=== PATIENT | female | born 1990 | race Caucasian/White ===

== ENCOUNTER 2016-12-31 18:01 | Emergency (ER) | payer SELFPAY ==
--- NOTE | 2016-12-31 20:10 | ED ORDER SUMMARY ---
..... Patient: KRISTIE ORANTES OrderSheet [facility] VisitID: [id number] [address] [place] [address] 26y, F Registration Date/Time: 12/31/2016 ORDER SHEET Weight: 181.4 kg (stated) Allergies: No Known Drug Allergy GENERAL ORDERS: Chest 2V Urgent (18:47 12/31/2016 JCoates) (Ack 19:08 Ehsanegekimana) (19:11 MCampbell) CBC w Diff Urgent (18:47 12/31/2016 JCoates) (Ack 19:08 Ehsanegekimana) (19:46 JBullard R.N.) CMP Urgent (18:47 12/31/2016 JCoates) (Ack 19:08 Ehsanegekimana) (19:46 JBullard R.N.) MEDICATION ORDERS: IV FLUIDS: IV NS : initial bolus 1000 mL (1000 mL/hr), then 1000 mL/hr for X1 (NOW) (18:47 12/31/2016 JCoates) (20:33 JBullard R.N.) Dilaudid IV 1 mg (NOW) (18:47 12/31/2016 JCoates) (20:33 JBullard R.N.) Toradol IV 30 mg (NOW) (18:47 12/31/2016 JCoates) (20:33 JBullard R.N.) Zofran IV 8 mg (NOW) (18:47 12/31/2016 JCoates) (20:34 JBullard R.N.) IV Saline Lock (18:47 12/31/2016 JCoates) (Ack 19:22 Gabe R.N.) (20:33 JBullard R.N.) ORDER SHEET NOTES: [Electronically signed by Benito Patel R.N. (21:08 12/31/2016)] [Electronically signed by Tre Fink (00:19 01/01/2017)] [Electronically locked/signed by Benito Patel R.N. (21:08 12/31/2016)]
--- NOTE | 2016-12-31 20:10 | ED NURSING NOTES ---
Clinical Report - Nurses [facility] [address] [place] [address] 12/31/2016 18:02 Patient: KRISTIE ORANTES TRIAGE Triage time 18:28. Acuity: LEVEL 4. Chief Complaint: HEADACHE and COUGH. Alert. No acute distress. GRACIELA COMA SCORE: Graciela Coma Scale: 15- eyes open spontaneously (4); best verbal response- oriented x 4 (5); best motor response- obeys commands (6). --18:34 Deisi Walker R.N. 18:28 12/31/16. BP: 134/86. HR: 102. RR: 18. O2 saturation: 95% on room air. Temp: 99.6 F (oral). Pain level now: 08/23. --18:34 Deisi Walker R.N. Weight: 181.4 kg stated. Height/Length: 68 inches Per Patient. BMI: 60.8. --18:29 Deisi Walker R.N. Medications None. --18:29 Deisi Walker R.N. Medication/allergy information source: the patient. --18:34 Deisi Walker R.N. Allergies No Known Drug Allergy. --18:29 Deisi Walker R.N. History Arrived by private vehicle. Historian: patient. Unaccompanied. Primary physician (JULISSA Kelley). Onset. (about 1 week). 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 (Contact Ultra,). PAST MEDICAL HX: Last normal menstrual period now. SOCIAL HX: Smoker- current status unknown (no). History of drug use: marijuana. No alcohol use. FALL RISK ASSESSMENT: Fall risk assessment completed. No fall risk identified. FUNCTIONAL ASSESSMENT: Functional assessment: no impairments noted. LEARNING NEEDS ASSESSMENT: The learning needs assessment revealed no barriers. --18:34 Deisi Walker R.N. PROBLEMS: Pyelonephritis. UTI - Urinary Tract Infection. Threatened . Hypertension. Scabies. Chest Pain. Cardiovascular Risk Factors. Immunizations. LNMP - Last Normal Menstrual Period. Reflux . --18:29 Deisi Walker R.N. ADDITIONAL SURGERIES: no known surgeries. Assessment GENERAL / NEURO / PSYCH: The patient is awake and alert, is oriented and cooperative and appears uncomfortable. She has good eye contact. RESPIRATORY: Respirations not labored. Cough. SKIN: Skin is warm and dry. --18:34 Deisi Walker R.N. Interventions ID band on patient. To treatment room. --18:34 Deisi Walker R.N. PHYSICAL ASSESSMENT 18:36 12/31/16. Ambulatory to room. Patient gowned. GENERAL / NEURO / PSYCH: The patient is awake and alert, is oriented and cooperative and appears uncomfortable. She has good eye contact. RESPIRATORY: Respirations not labored. Cough. SKIN: Skin is warm and dry. --18:36 Deisi Walker R.N. NURSING PROGRESS NOTES Pulse oximeter and NIBP monitor placed on patient. Patient gowned. Head of bed elevated. Side rails up x 1. Bed placed in lowest position. Brakes of bed on. --19:41 Deisi Walker R.N. 19:45 12/31/2016 Site #1 started via IV in the right forearm with an 22g angiocath, with aseptic technique and good blood return; two attempts. Blood drawn. Labeled in the presence of the patient and sent to the lab. Saline lock flushed with 10 mL saline (roselyn red, green, lavender tubes). --19:45 Deisi Walker R.N. 20:31 12/31/2016 Site #1 removed. Catheter intact. Bandage applied. --20:32 Benito Patel R.N. 20:32 12/31/2016 Site #1 relocated to the left antecubital space with an 20g angiocath, with aseptic technique and good blood return; one attempt. Saline lock flushed with saline. --20:32 Benito Patel R.N. 20:33 12/31/2016 Started bag #1 1000 mL IV Fluids IV NS (Saline); bolus of 1000 mL wide open via site #1. Allergies verified and confirmed 5 rights. IV patency established. IV site checked: no pain, redness, or swelling. IV flushed thoroughly pre- and post-medication administration. --20:33 Benito Patel R.N. 20:33 12/31/2016 Dilaudid (HYDROmorphone HCl PF) IVP 1 mg given over 2 hour(s) via site #1. Allergies verified, confirmed 5 rights and sedative warning given to the patient. IV patency established. IV site checked: no pain, redness, or swelling. IV flushed thoroughly pre- and post-medication administration. --20:33 Benito Patel R.N. 20:33 12/31/2016 Toradol IVP 30 mg given over 2 minute(s) via site #1. Allergies verified and confirmed 5 rights. IV patency established. IV site checked: no pain, redness, or swelling. IV flushed thoroughly pre- and post-medication administration. --20:33 Beinto Patel R.N. 20:34 12/31/2016 Zofran (Ondansetron HCl) IVP 8 mg given. via site #1. Allergies verified and confirmed 5 rights. IV patency established. IV site checked: no pain, redness, or swelling. IV flushed thoroughly pre- and post-medication administration. --20:34 Benito Patel R.N. DISPOSITION / DISCHARGE Departure time: 2104. Condition at departure: improved. No learning barriers present. Reviewed warnings. Reviewed medication(s). Treatments reviewed. Reviewed referrals. Activity restrictions reviewed. Work note given. Patient verbalized understanding. Written instructions provided in Divehi. The patient was discharged by the physician media center assistant. She was discharged home and unaccompanied at time of discharge. She left the Emergency Department ambulatory and via private vehicle. Patient driving. --21:08 Benito Patel R.N. 21:07 12/31/16. BP: 133/88. HR: 88. RR: 18. O2 saturation: 98%. Temp: 98 F. Pain level now 01/21. --21:08 Benito Patel R.N. Locked/Released at 12/31/2016 21:08 by Benito Patle R.N.
--- NOTE | 2016-12-31 20:10 | ED ORDER SUMMARY ---
..... Patient: KRISTIE ORANTES OrderSheet [facility] VisitID: [id number] [address] [place] [address] 26y, F Registration Date/Time: 12/31/2016 ORDER SHEET Weight: 181.4 kg (stated) Allergies: No Known Drug Allergy GENERAL ORDERS: Chest 2V Urgent (18:47 12/31/2016 JCoates) (Ack 19:08 Ehsanegekimana) (19:11 MCampbell) CBC w Diff Urgent (18:47 12/31/2016 JCoates) (Ack 19:08 Ehsanegekimana) (19:46 JBullard R.N.) CMP Urgent (18:47 12/31/2016 JCoates) (Ack 19:08 Ehsanegekimana) (19:46 JBullard R.N.) MEDICATION ORDERS: IV FLUIDS: IV NS : initial bolus 1000 mL (1000 mL/hr), then 1000 mL/hr for X1 (NOW) (18:47 12/31/2016 JCoates) (20:33 JBullard R.N.) Dilaudid IV 1 mg (NOW) (18:47 12/31/2016 JCoates) (20:33 JBullard R.N.) Toradol IV 30 mg (NOW) (18:47 12/31/2016 JCoates) (20:33 JBullard R.N.) Zofran IV 8 mg (NOW) (18:47 12/31/2016 JCoates) (20:34 JBullard R.N.) IV Saline Lock (18:47 12/31/2016 JCoates) (Ack 19:22 Gabe R.N.) (20:33 JBullard R.N.) ORDER SHEET NOTES: [Electronically signed by Benito Patel R.N. (21:08 12/31/2016)] [Electronically signed by Tre Fink (00:19 01/01/2017)] [Electronically locked/signed by Benito Patel R.N. (21:08 12/31/2016)]
--- NOTE | 2016-12-31 20:10 | ED NURSING NOTES ---
Clinical Report - Nurses [facility] [address] [place] [address] 12/31/2016 18:02 Patient: KRISTIE ORANTES TRIAGE Triage time 18:28. Acuity: LEVEL 4. Chief Complaint: HEADACHE and COUGH. Alert. No acute distress. GRACIELA COMA SCORE: Graciela Coma Scale: 15- eyes open spontaneously (4); best verbal response- oriented x 4 (5); best motor response- obeys commands (6). --18:34 Deisi Walker R.N. 18:28 12/31/16. BP: 134/86. HR: 102. RR: 18. O2 saturation: 95% on room air. Temp: 99.6 F (oral). Pain level now: 08/23. --18:34 Deisi Walker R.N. Weight: 181.4 kg stated. Height/Length: 68 inches Per Patient. BMI: 60.8. --18:29 Deisi Walker R.N. Medications None. --18:29 Deisi Walker R.N. Medication/allergy information source: the patient. --18:34 Deisi Walker R.N. Allergies No Known Drug Allergy. --18:29 Deisi Walker R.N. History Arrived by private vehicle. Historian: patient. Unaccompanied. Primary physician (JULISSA Kelley). Onset. (about 1 week). 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 (Contact Ultra,). PAST MEDICAL HX: Last normal menstrual period now. SOCIAL HX: Smoker- current status unknown (no). History of drug use: marijuana. No alcohol use. FALL RISK ASSESSMENT: Fall risk assessment completed. No fall risk identified. FUNCTIONAL ASSESSMENT: Functional assessment: no impairments noted. LEARNING NEEDS ASSESSMENT: The learning needs assessment revealed no barriers. --18:34 Deisi Walker R.N. PROBLEMS: Pyelonephritis. UTI - Urinary Tract Infection. Threatened . Hypertension. Scabies. Chest Pain. Cardiovascular Risk Factors. Immunizations. LNMP - Last Normal Menstrual Period. Reflux . --18:29 Deisi Walker R.N. ADDITIONAL SURGERIES: no known surgeries. Assessment GENERAL / NEURO / PSYCH: The patient is awake and alert, is oriented and cooperative and appears uncomfortable. She has good eye contact. RESPIRATORY: Respirations not labored. Cough. SKIN: Skin is warm and dry. --18:34 Deisi Walker R.N. Interventions ID band on patient. To treatment room. --18:34 Deisi Walker R.N. PHYSICAL ASSESSMENT 18:36 12/31/16. Ambulatory to room. Patient gowned. GENERAL / NEURO / PSYCH: The patient is awake and alert, is oriented and cooperative and appears uncomfortable. She has good eye contact. RESPIRATORY: Respirations not labored. Cough. SKIN: Skin is warm and dry. --18:36 Deisi Walker R.N. NURSING PROGRESS NOTES Pulse oximeter and NIBP monitor placed on patient. Patient gowned. Head of bed elevated. Side rails up x 1. Bed placed in lowest position. Brakes of bed on. --19:41 Deisi Walker R.N. 19:45 12/31/2016 Site #1 started via IV in the right forearm with an 22g angiocath, with aseptic technique and good blood return; two attempts. Blood drawn. Labeled in the presence of the patient and sent to the lab. Saline lock flushed with 10 mL saline (roselyn red, green, lavender tubes). --19:45 Deisi Walker R.N. 20:31 12/31/2016 Site #1 removed. Catheter intact. Bandage applied. --20:32 Benito Patel R.N. 20:32 12/31/2016 Site #1 relocated to the left antecubital space with an 20g angiocath, with aseptic technique and good blood return; one attempt. Saline lock flushed with saline. --20:32 Benito Patel R.N. 20:33 12/31/2016 Started bag #1 1000 mL IV Fluids IV NS (Saline); bolus of 1000 mL wide open via site #1. Allergies verified and confirmed 5 rights. IV patency established. IV site checked: no pain, redness, or swelling. IV flushed thoroughly pre- and post-medication administration. --20:33 Benito Patel R.N. 20:33 12/31/2016 Dilaudid (HYDROmorphone HCl PF) IVP 1 mg given over 2 hour(s) via site #1. Allergies verified, confirmed 5 rights and sedative warning given to the patient. IV patency established. IV site checked: no pain, redness, or swelling. IV flushed thoroughly pre- and post-medication administration. --20:33 Benito Patel R.N. 20:33 12/31/2016 Toradol IVP 30 mg given over 2 minute(s) via site #1. Allergies verified and confirmed 5 rights. IV patency established. IV site checked: no pain, redness, or swelling. IV flushed thoroughly pre- and post-medication administration. --20:33 Benito Patel R.N. 20:34 12/31/2016 Zofran (Ondansetron HCl) IVP 8 mg given. via site #1. Allergies verified and confirmed 5 rights. IV patency established. IV site checked: no pain, redness, or swelling. IV flushed thoroughly pre- and post-medication administration. --20:34 Benito Patel R.N. DISPOSITION / DISCHARGE Departure time: 2104. Condition at departure: improved. No learning barriers present. Reviewed warnings. Reviewed medication(s). Treatments reviewed. Reviewed referrals. Activity restrictions reviewed. Work note given. Patient verbalized understanding. Written instructions provided in Kinyarwanda. The patient was discharged by the physician billing and accounting staff assistant. She was discharged home and unaccompanied at time of discharge. She left the Emergency Department ambulatory and via private vehicle. Patient driving. --21:08 Benito Patel R.N. 21:07 12/31/16. BP: 133/88. HR: 88. RR: 18. O2 saturation: 98%. Temp: 98 F. Pain level now 01/21. --21:08 Benito Patel R.N. Locked/Released at 12/31/2016 21:08 by Benito Patel R.N.
--- NOTE | 2016-12-31 20:10 | ED CLINICAL REPORT ---
Clinical Report - Physicians/Mid Levels [facility] [address] [place] [address] 12/31/2016 18:02 Patient: KRISTIE ORANTES Time Seen: 18:32 Dec 31 2016; initial patient contact. Arrived- By private vehicle. Historian- patient. HISTORY OF PRESENT ILLNESS Is still present. Chief Complaint: HEADACHE. This started 3 days ago. It was gradual in onset. It is described as similar to previous headaches, pressure and throbbing. Located in the right hemicranial, right temporal, left hemicranial and left temporal region. No neck pain. No associated nausea or vomiting. (Patient has had a cough, runny nose and congestion for about 4 days. She says that from the coughing she's developed a severe headache. She says she's had headaches like this before but they didn't last as long. She tried taking ibuprofen and Tylenol but it hasn't helped. She denies any pain with inspiration. No high fever.). Similar symptoms previously: As bad. Recent medical care: Not recently seen/assessed. REVIEW OF SYSTEMS The patient has had nasal congestion, a runny nose, a sore throat, fever and muscle aches. She has had a cough and headache and joint pain. No ear pain, pedal edema, abdominal pain, hematuria or pelvic pain. No back pain, skin rash, alteration in mental status, numbness or seizure. No difficulty walking. All systems otherwise negative, except as recorded above. PAST HISTORY See nurses notes. No history of heart disease or lung disease. SOCIAL HISTORY Smoker- current status unknown. History of drug use: marijuana. ADDITIONAL NOTES The nursing notes have been reviewed. PHYSICAL EXAM Appearance: Alert. No acute distress. Eyes: Pupils equal, round and reactive to light. Mild redness of the right conjunctiva; mild redness of the left conjunctiva. No exudate on the right or left. No photophobia. ENT: Ears normal. Nose normal. Pharynx normal. Neck: Normal inspection. Neck supple. No meningeal signs or lymphadenopathy. CVS: Tachycardia. Pulses normal. Rhythm normal. Respiratory: No respiratory distress. Breath sounds normal. Abdomen: Soft and nontender. Back: Normal inspection. CVA tenderness. Skin: Skin warm and dry. Normal skin color. No rash. Normal skin turgor. Extremities: Extremities exhibit normal ROM. Neuro: Oriented X 3. Alert. Cranial nerves normal (as tested). No cerebellar findings. No motor deficit. No sensory deficit. LABS, X-RAYS, AND EKG Chest X-ray: Infiltrate in the right lower lobe. Consistent with pneumonia. Normal heart size. Views: PA and lateral. Technique: good. The X-rays were discussed with the radiologist. Laboratory Tests: CBC w Diff: (AUGUSTUS: 12/31/2016 19:30) ( MsgRcvd 12/31/2016 19:47) Final results Test Result Flag Units (Reference) WHITE BLOOD COUNT 15.9 H K/uL (4.5-11.5) RED BLOOD COUNT 4.72 M/uL (4.00-5.20) HEMOGLOBIN 13.9 gm/dL (12.0-16.0) HEMATOCRIT 41.7 % (36.0-46.0) MEAN CELL VOLUME 88 fL (80-100) MEAN CORPUSCULAR HGB 29 pg (26-34) MEAN CORPUSCULAR HGB CONC 33 g/dL (31-37) RED CELL DISTRIBUTION WIDTH 13.1 % (11.6-14.8) PLATELET COUNT 368 K/uL (150-400) NEUTROPHIL % 87.0 H % (50-75) LYMPH % 12.3 L % (25-40) MONO % 0.6 L % (3-14) EOSINOPHIL % 0.1 % (0-4) BASOPHIL % 0 % (0-2) CMP: (AUGUSTUS: 12/31/2016 19:30) ( MsgRcvd 12/31/2016 20:05) Final results Test Result Flag Units (Reference) GLUCOSE 115 H mg/dL (70-110) BUN 6 L mg/dL (7-18) CREATININE 0.7 mg/dL (0.6-1.3) Estimated GFR >60 mL/min Estimated GFR- >60 mL/min Note: Persistent reduction over 3 months in eGFR<60 mL/min/1.73 m2 defines CKD. Patients with eGFR values>=60 mL/min/1.73 m2 may also have CKD if evidence ofpersistent proteinuria. Additional information may be foundat www.kidney.org. SODIUM 137 mmol/L (136-145) POTASSIUM 3.3 L mmol/L (3.5-5.1) CHLORIDE 101 mmol/L (98-107) CARBON DIOXIDE 24 mmol/L (21-32) CALCIUM 9.1 mg/dL (8.5-10.1) TOTAL PROTEIN 8.4 H g/dL (6.4-8.2) ALBUMIN 3.8 g/dL (3.3-5.0) BILIRUBIN, TOTAL 0.4 mg/dL (0.0-1.0) ALKALINE PHOSPHATASE 81 U/L (46-116) AST (SGOT) 23 U/L (15-37) ALT (SGPT) 39 U/L (12-78) . PROGRESS AND PROCEDURES Course of Care: 18:53 12/31/16. Patient stable. Benign exam. Long-standing symptoms. Doubt ICH meningitis or other life-threatening cause of her headache. We will get basic labs, chest x-ray to rule out infiltrate, hydrate and make her comfortable. Chest x-rayshows infiltrate and WBC is slightly elevated. We'll treat for pneumonia. She is quite stable and would like to go so will not hold her here for first dose of antibiotic. She is headed to her pharmacy now where she can start azithromycin. Follow up with her primary care provider in 2-4 Days for reevaluation. Return here sooner if any worsening or further concerns. Disposition: Condition: stable. CLINICAL IMPRESSION Bacterial pneumonia. Tension-type headache. INSTRUCTIONS Rest for two. Do not work for two days. No dietary restrictions. Do not smoke. Warnings: SEDATIVE MEDICATION: You were given sedative medication during your visit. Do not drive or operate dangerous machinery for 12 hours. GENERAL WARNINGS: Return or contact your physician immediately if your condition worsens or changes unexpectedly, if not improving as expected, or if other problems arise. SPECIFICALLY, return if you develop vomiting or fainting. Prescription Medications: Tylenol with Codeine Tylenol #3 (30 mg / 300 mg) : take 1 tablet orally every 6 hours. Dispense ten (10). No refill. Substitution is permissible. (PRN for cough and pain) Zithromax Z-Gustavo 250 mg tablets: take 1 orally today, followed by 1 orally every day. Total course 5 days. No refills. Substitution is permissible. OTC Medications: Mucinex (available over the counter): 600 mg tablet: take 1 tablet orally every 12 hours for 5 days. Dispense ten (10). No refill. Follow-up: Follow up with your doctor in three days even if well. Understanding of the discharge instructions verbalized by patient. (Electronically signed by Tre Fink, 01/01/2017 0:19)
--- NOTE | 2016-12-31 20:21 | DIAGNOSTIC IMAGING REPORT ---
PROCEDURE: XR CHEST 2 VIEW INDICATION: FEVER TECHNIQUE: PA and lateral views. COMPARISON: None. FINDINGS: There are mild to moderate parenchymal changes at the right lung base. Left lung is clear. Heart and mediastinum are normal. Thorax is normal. IMPRESSION: 1. Mild to moderate parenchymal changes at the right lung base compatible with pneumonia (e.g., aspiration, bacterial, Mycoplasma). 2. Findings discussed with DEBORAH Alcaraz.
--- NOTE | 2017-01-01 00:19 | ED MED RECONCILIATION SUMMARY ---
Patient: KRISTIE ORANTES Medication Reconciliation Report [facility] VisitID: [id number] [address] [place] [address] 26y, F Registration Date/Time: 12/31/2016 Weight: 181.4 kg Height/Length: 68 in. BMI: 60.8 ALLERGIES: No Known Drug Allergy The patient's Home Medications are listed below: NONE. The source(s) of the original Home Medication information: patient The following Medications were given to the patient in the Emergency Department: IV NS IV Fluids bolus 1000 mL wide open, administered: 12/31/2016 8:33:00 PM Dilaudid [IVP] IVP 1 mg, administered: 12/31/2016 8:33:00 PM Toradol [IVP] IVP 30 mg, administered: 12/31/2016 8:33:00 PM Zofran [IVP] IVP 8 mg, administered: 12/31/2016 8:34:00 PM The following Medications were prescribed to the patient: Tylenol with Codeine Tylenol #3 (30 mg / 300 mg) : take 1 tablet orally every 6 hours. Dispense ten (10). No refill. Substitution is permissible.(PRN for cough and pain) -- Tre Fink Zithromax Z-Gustavo 250 mg tablets: take 1 orally today, followed by 1 orally every day. Total course 5 days. No refills. Substitution is permissible. -- Tre Fink Mucinex (available over the counter): 600 mg tablet: take 1 tablet orally every 12 hours for 5 days. Dispense ten (10). No refill. -- Tre Fink
--- NOTE | 2017-01-01 00:19 | ED MAR SUMMARY ---
..... Medication Administration Record [address] [place] [address] Patient: KRISTIE ORANTES Visit ID: [id number] 26y, F Weight: 181.4 kg Height/Length: 68 in BMI: 60.8 ALLERGIES: No Known Drug Allergy Start 20:12/31/2016 Benito Patel R.N. Medication Administered: IV NS (SALINE), Dose: IV Fluids, Bolus: 1000 mL wide open, Dispensed: 1000 mL bag, Site: #1 left AC. Medication Ordered: IV NS : initial bolus 1000 mL (1000 mL/hr), then 1000 mL/hr for X1 (NOW). Given 20:12/31/2016 Benito Patel R.N. Medication Administered: DILAUDID [IVP] (HYDROMORPHONE HCL PF), Dose: 1 mg IVP over 2 hour(s), Site: #1 left AC. Medication Ordered: Dilaudid IV 1 mg (NOW). Given 20:12/31/2016 Benito Patel R.N. Medication Administered: TORADOL [IVP], Dose: 30 mg IVP over 2 minute(s), Site: #1 left AC. Medication Ordered: Toradol IV 30 mg (NOW). Given 20:12/31/2016 Benito Patel R.N. Medication Administered: ZOFRAN [IVP] (ONDANSETRON HCL), Dose: 8 mg IVP, Site: #1 left AC. Medication Ordered: Zofran IV 8 mg (NOW).
--- NOTE | 2017-01-01 00:19 | ED DISCHARGE INSTRUCTIONS ---
Patient: KRISTIE ORANTES General Instructions [facility] VisitID: [id number] [place] [address] 26y, F Registration Date/Time: 12/31/2016 Bacterial pneumonia. Tension-type headache. INSTRUCTIONS Rest for two. Do not work for two days. No dietary restrictions. Do not smoke. Warnings: SEDATIVE MEDICATION: You were given sedative medication during your visit. Do not drive or operate dangerous machinery for 12 hours. GENERAL WARNINGS: Return or contact your physician immediately if your condition worsens or changes unexpectedly, if not improving as expected, or if other problems arise. SPECIFICALLY, return if you develop vomiting or fainting. Prescription Medications: Tylenol with Codeine Tylenol #3 (30 mg / 300 mg) : take 1 tablet orally every 6 hours. Dispense ten (10). No refill. Substitution is permissible. (PRN for cough and pain) Zithromax Z-Gustavo 250 mg tablets: take 1 orally today, followed by 1 orally every day. Total course 5 days. No refills. Substitution is permissible. OTC Medications: Mucinex (available over the counter): 600 mg tablet: take 1 tablet orally every 12 hours for 5 days. Dispense ten (10). No refill. Follow-up: Follow up with your doctor in three days even if well. Understanding of the discharge instructions verbalized by patient. ADDITIONAL INFORMATION Pneumonia (Adult) Pneumonia is an infection deep within the lung, in the small air sacs (alveoli). It may be due to a virus or bacteria and is usually treated with an antibiotic. Severe cases require treatment in the hospital. Milder cases can be treated at home. Symptoms usually start to improve during the first2 days of treatment. Home Care: Rest at home for the first 23 days or until you feel stronger. When resuming activity, dont let yourself become overly tired. Avoid exposure to cigarette smoke (yours or others). You may use acetaminophen (Tylenol) or ibuprofen (Motrin, Advil) to control fever or pain, unless another medicine was prescribed. [NOTE: If you have chronic liver or kidney disease or ever had a stomach ulcer or GI bleeding, talk with your doctor before using these medicines.] (Aspirin should never be used in anyone under 18 years of age who is ill with a fever. It may cause severe liver damage.) Your appetite may be poor so a light diet is fine. Keep well hydrated by drinking 68 glasses of fluids per day (water, sport drinks such as Gatorade, sodas without caffeine, juices, tea, soup, etc.). This will help loosen secretions in the lung, making it easier for you to cough up the phlegm (sputum). If you also have heart or kidney disease, check with your doctor before you drink extra amounts of fluids. Finish all antibiotic medicine prescribed, even if you are feeling better after a few days. Follow Up with your doctor in the next 23 days (or as advised) to be sure you are responding properly to the medicine. [NOTE: If you are age 65 or older, or if you have chronic lung disease (asthma, emphysema or COPD), we recommendthe pneumococcal vaccination and a yearlyinfluenzavaccination(flu-shot) every . Ask your doctor about this.] Get Prompt Medical Attention if any of the following occur: Not getting better within the first 48 hours of treatment Increasing shortness of breath or rapid breathing (over 25 breaths/minute) Coughing up blood or increasing chest pain with breathing Fever of 100.4F (38C) oral or higher, not better with fever medication Increasing weakness, dizziness or fainting Increasing thirst or dry mouth Sinus pain, headache or a stiff neck Chest pain not caused by coughing Tension Headache Muscle Tension Headache (also called "stress headache") is a very common cause of head pain. Under stress, some people tense the muscles of their shoulder, neck and scalp without knowing it. If this lasts long enough, a headache can occur. These headaches can be very painful and last for hours or even days. Home Care: If you were given pain medicine for this headache, do not drive yourself home. Arrange for a ride, instead. When you get home, try to sleep. You should feel much better when you wake up. Heat to the back of your neck may relieve neck spasm. Drink only clear liquids or eat a very light diet to avoid nausea/vomiting until symptoms improve. Preventing Future Headaches Identify the sources of stress in your life. These may not be obvious! Learn new ways to handle your stress, such as regular exercise, biofeedback, self-hypnosis and meditation. For more information about this, consult your doctor or go to a local bookstore and review the many books and tapes on this subject. At the first sign of a tension headache, take time out if possible. Remove yourself from the stressful situation, find a quiet comfortable place to sit or lie down and let yourself relax. Heat and deep massage of the tight areas in the neck and shoulders may help reduce muscle spasm. Medicine, such as ibuprofen (Advil or Motrin) or a prescribed muscle relaxant may be helpful at this point. Follow Up with your doctor if the headache is not better within the next 24 hours. If you have frequent headaches you should discuss a treatment plan with your primary care doctor. Ask if you can have medicine to take at home the next time you get a bad headache. This may avoid the need for a visit to the emergency department in the future. Poorly controlled chronic headaches may require a referral to a neurologist (headache specialist). Get Prompt Medical Attention if any of the following occur: Worsening of your head pain or no improvement within 24 hours Repeated vomiting (unable to keep liquids down) Fever of 100.4F (38C) or higher, or as directed by your healthcare provider Stiff neck Extreme drowsiness, confusion or fainting Dizziness, vertigo (dizziness with spinning sensation) Weakness of an arm or leg or one side of the face Difficulty with speech or vision Acetaminophen, Codeine Phosphate Oral tablet What is this medicine? ACETAMINOPHEN; CODEINE (a set a TONY trina fen; CRISTIAN espinosa) is a pain reliever. It is used to treat mild to moderate pain. How should I use this medicine? Take this medicine by mouth with a full glass of water. Follow the directions on the prescription label. If the medicine upsets your stomach, take the medicine with food or milk. Do not take more medicine than you are told to take. Talk to your supervisor engine assembly regarding the use of this medicine in children. Special care may be needed. What side effects may I notice from receiving this medicine? Side effects that you should report to your doctor or health hemodialysis patient care specialist as soon as possible: allergic reactions like skin rash, itching or hives, swelling of the face, lips, or tongue breathing difficulties, wheezing confusion light headedness or fainting spells severe stomach pain yellowing of the skin or the whites of the eyes Side effects that usually do not require medical attention (report to your doctor or health hemodialysis patient care specialist if they continue or are bothersome): dizziness drowsiness nausea, vomiting What may interact with this medicine? alcohol antihistamines benztropine drugs for bladder problems like solifenacin, trospium, oxybutynin, tolterodine, hycosamine, and methscopolamine drugs for breathing problems like ipratropium and tiotropium drugs for certain stomach or intestine problems like propantheline, homatropine methylbromide, glycopyrrolate, atropine, belladonna, and dicyclomine medicines for depression, anxiety, or psychotic disturbances medicines for sleep muscle relaxants naltrexone narcotic medicines (opiates) for pain phenothiazines like perphenazine, thioridazine, chlorpromazine, mesoridazine, fluphenazine, prochlorperazine, promazine, trifluoperazine scopolamine tramadol trihexyphenidyl What if I miss a dose? If you miss a dose, take it as soon as you can. If it is almost time for your next dose, take only that dose. Do not take double or extra doses. Where should I keep my medicine? Keep out of the reach of children. This medicine can be abused. Keep your medicine in a safe place to protect it from theft. Do not share this medicine with anyone. Selling or giving away this medicine is dangerous and against the law. Store at room temperature between 15 and 30 degrees C (59 and 86 degrees F). Protect from light. Keep container tightly closed. Throw away any unused medicine after the expiration date. Discard unused medicine and used packaging carefully. Pets and children can be harmed if they find used or lost packages. What should I tell my health care provider before I take this medicine? They need to know if you have any of these conditions: brain tumor Crohn's disease, inflammatory bowel disease, or ulcerative colitis drink more than 3 alcohol containing drinks per day drug abuse or addiction head injury heart or circulation problems kidney disease or problems going to the bathroom liver disease lung disease, asthma, or breathing problems an unusual or allergic reaction to acetaminophen, codeine, salicylates, other opioid analgesics, other medicines, foods, dyes, or preservatives or trying to get breast-feeding What should I watch for while using this medicine? Tell your doctor or health hemodialysis patient care specialist if your pain does not go away, if it gets worse, or if you have new or a different type of pain. You may develop tolerance to the medication. Tolerance means that you will need a higher dose of the medication for pain relief. Tolerance is normal and is expected if you take the medicine for a long time. Do not suddenly stop taking your medicine because you may develop a severe reaction. Your body becomes used to the medicine. This does NOT mean you are addicted. Addiction is a behavior related to getting and using a drug for a non medical reason. If you have pain, you have a medical reason to take pain medicine. Your doctor will tell you how much medicine to take. If your doctor wants you to stop the medicine, the dose will be slowly lowered over time to avoid any side effects. You may get drowsy or dizzy. Do not drive, use machinery, or do anything that needs mental alertness until you know how this medicine affects you. Do not stand or sit up quickly, especially if you are an older patient. This reduces the risk of dizzy or fainting spells. Alcohol may interfere with the effect of this medicine. Avoid alcoholic drinks. There are different types of narcotic medicines (opiates) for pain. If you take more than one type at the same time, you may have more side effects. Give your health care provider a list of all medicines you use. Your doctor will tell you how much medicine to take. Do not take more medicine than directed. Call emergency for help if you have problems breathing. The medicine will cause constipation. Try to have a bowel movement at least every 2 to 3 days. If you do not have a bowel movement for 3 days, call your doctor or health hemodialysis patient care specialist. Do not take Tylenol (acetaminophen) or medicines that have acetaminophen with this medicine. Too much acetaminophen can be very dangerous. Many nonprescription medicines contain acetaminophen. Always read the labels carefully to avoid taking more acetaminophen. Immediately call your physician or get emergency help if you are breast-feeding and your baby is sleepier than usual, is limp, or has difficulty or breathing. You have been given the following additional information: Pneumonia (Adult) Headache, Tension Acetaminophen, Codeine Phosphate Oral tablet Rest for two. Do not work for two days. (Electronically signed by Tre Fink, 01/01/2017 0:19)
--- NOTE | 2017-01-01 00:19 | ED MAR SUMMARY ---
..... Medication Administration Record [facility] [address] [place] [address] Patient: KRISTIE ORANTES Visit ID: [id number] 26y, F Weight: 181.4 kg Height/Length: 68 in BMI: 60.8 ALLERGIES: No Known Drug Allergy Start 20:12/31/2016 Benito Patel R.N. Medication Administered: IV NS (SALINE), Dose: IV Fluids, Bolus: 1000 mL wide open, Dispensed: 1000 mL bag, Site: #1 left AC. Medication Ordered: IV NS : initial bolus 1000 mL (1000 mL/hr), then 1000 mL/hr for X1 (NOW). Given 20:12/31/2016 Benito Patel R.N. Medication Administered: DILAUDID [IVP] (HYDROMORPHONE HCL PF), Dose: 1 mg IVP over 2 hour(s), Site: #1 left AC. Medication Ordered: Dilaudid IV 1 mg (NOW). Given 20:12/31/2016 Benito Patel R.N. Medication Administered: TORADOL [IVP], Dose: 30 mg IVP over 2 minute(s), Site: #1 left AC. Medication Ordered: Toradol IV 30 mg (NOW). Given 20:12/31/2016 Benito Patel R.N. Medication Administered: ZOFRAN [IVP] (ONDANSETRON HCL), Dose: 8 mg IVP, Site: #1 left AC. Medication Ordered: Zofran IV 8 mg (NOW).
--- NOTE | 2017-01-01 00:19 | ED MED RECONCILIATION SUMMARY ---
Patient: KRISTIE ORANTES Medication Reconciliation Report [facility] VisitID: [id number] [address] [place] [place] [address] 26y, F Registration Date/Time: 12/31/2016 Weight: 181.4 kg Height/Length: 68 in. BMI: 60.8 ALLERGIES: No Known Drug Allergy The patient's Home Medications are listed below: NONE. The source(s) of the original Home Medication information: patient The following Medications were given to the patient in the Emergency Department: IV NS IV Fluids bolus 1000 mL wide open, administered: 12/31/2016 8:33:00 PM Dilaudid [IVP] IVP 1 mg, administered: 12/31/2016 8:33:00 PM Toradol [IVP] IVP 30 mg, administered: 12/31/2016 8:33:00 PM Zofran [IVP] IVP 8 mg, administered: 12/31/2016 8:34:00 PM The following Medications were prescribed to the patient: Tylenol with Codeine Tylenol #3 (30 mg / 300 mg) : take 1 tablet orally every 6 hours. Dispense ten (10). No refill. Substitution is permissible.(PRN for cough and pain) -- Tre Fink Zithromax Z-Gustavo 250 mg tablets: take 1 orally today, followed by 1 orally every day. Total course 5 days. No refills. Substitution is permissible. -- Tre Fink Mucinex (available over the counter): 600 mg tablet: take 1 tablet orally every 12 hours for 5 days. Dispense ten (10). No refill. -- Tre Fink
== END 2016-12-31 21:05 | disposition home or self-care (01) ==
LOC: ED SRH 18:01
DX: J15.9 Unspecified bacterial pneumonia (principal); G44.209 Tension-type headache, unspecified, not intractable
CPT/HCPCS: 90100; 95059